=== PATIENT | male | born 1965 | race Two or more races ===

== ENCOUNTER 2018-09-09 22:23 | Emergency (ER) | payer OTHER ==
[~2018-09-09] VITALS: Ht 172.7 cm; Wt 59.0 kg
[2018-09-09] MEDS ORDERED: XOPENEX0.63 MG/3 HHN (22:40)
[2018-09-09] MEDS ORDERED: METOPROLOL TART25 MG ORAL (22:40)
[2018-09-09] MEDS ORDERED: MAGNESIUM400 M1 PO (22:40)
[2018-09-09] MEDS ORDERED: ACIDOPHILUS1 EAC6 PO (22:40)
[2018-09-09] MEDS ORDERED: PANTOPRAZOLE SO20 MG ORAL (22:40)
[2018-09-09] MEDS ORDERED: VALACYCLOVIR500 MG ORAL (22:40)
[2018-09-09] MEDS ORDERED: CALCIUM CARBON500 M1 PO (22:40)
[2018-09-09] MEDS ORDERED: ASCORBIC ACID500 MG ORAL (22:40)
[2018-09-09] MEDS ORDERED: AMIODARONE HCL200 MG ORAL (22:40)
--- NOTE | 2018-09-09 22:44 | Emergency Room Report ---
History of Present Illness General Chief Complaint: General Complaint Source: Patient Present Illness HPI Is a 53-year-old male coming from the shelter with chief complaint of abnormal labs. He was there for rehabilitation from unspecified sepsis. A drug -seeking was done and was positive for cocaine and opiates. He was sent here for evaluation. Initially he complaining of shortness of breath. Here he has no complaint. No chest pain. No short of breath. No other complaint. Allergies: Coded Allergies: No Known Allergies (Unverified , 09/09/18) Patient History Past Medical History: see triage record, old chart reviewed Past Surgical History: other Pertinent Family History: none Social History: Denies: smoking Immunizations: other Reviewed Nursing Documentation: PMH: Agreed; PSxH: Agreed Nursing Documentation-PMH Past Medical History: No History, Except For Hx Cardiac Problems: No - anemia, hypokalemia Hx Hypertension: Yes Hx COPD: Yes Hx Neurological Problems: Yes - depression, anxiety Review of Systems Eye: Denies: eye pain, blurred vision ENT: Denies: ear pain, nose congestion, throat swelling Respiratory: Denies: cough, shortness of breath Cardiovascular: Denies: chest pain, palpitations Gastrointestinal: Denies: abdominal pain, diarrhea, nausea, vomiting Musculoskeletal: Denies: back pain, joint pain Skin: Denies: rash Neurological: Denies: headache, numbness Endocrine: Denies: increased thirst, increased urine Hematologic/Lymphatic: Denies: easy bruising All Other Systems: negative except mentioned in HPI Physical Exam Vital Signs Date Time Temp Pulse Resp B/P (MAP) Pulse Ox O2 Delivery O2 Flow Rate FiO2 09/09/18 22:23 98.8 99 18 99/66 92 Room Air vitals normal. Repeat pulse ox 98% Sp02 EP Interpretation: reviewed, normal General Appearance: well appearing, no apparent distress, alert Head: normocephalic, atraumatic Eyes: bilateral eye PERRL, bilateral eye EOMI ENT: hearing grossly normal, normal pharynx Neck: full range of motion, supple, no meningismus Respiratory: chest non-tender, lungs clear, normal breath sounds Cardiovascular #1: regular rate, rhythm, no murmur Gastrointestinal: normal bowel sounds, non tender, no mass, no organomegaly, no bruit, non-distended Musculoskeletal: back normal, normal range of motion Neurologic: alert, oriented x3 Psychiatric: mood/affect normal Skin: warm/dry Medical Decision Making Diagnostic Impression: Primary Impression: Cocaine abuse ER Course Is in with cocaine abuse. Uncomplicated. He claimed that he was using it for dental pain. He has no rest or distress. He has no chest pain. I see no need for any further workup. EKG unremarkable. EKG Diagnostic Results Rate: normal Rhythm: NSR ST Segments: no acute changes Last Vital Signs Date Time Temp Pulse Resp B/P (MAP) Pulse Ox O2 Delivery O2 Flow Rate FiO2 09/09/18 22:30 99 18 Room Air 09/09/18 22:23 98.8 99/66 92 Status: unchanged Disposition: [facility] Condition: Stable Referrals: Tucker Lim DO (PCP) Additional Instructions: stop using drugs. Follow up with your doctor in 7 days. Return if worse. Rylan Muniz MD Sep 09, 2018 22:44
[2018-09-09 22:48] VITALS: BP 99/66
[2018-09-09 22:50] VITALS: BP 99/66
== END 2018-09-09 22:51 ==
LOC: EDBD 22:23 → EMR 22:37
DX: F14.10 Cocaine abuse, uncomplicated (principal); I10 Essential (primary) hypertension; J44.9 Chronic obstructive pulmonary disease, unspecified; F41.9 Anxiety disorder, unspecified; F32.9 Major depressive disorder, single episode, unspecified
CPT/HCPCS: 99282